=== PATIENT | female | born 1980 | race Caucasian/White ===

== ENCOUNTER 2019-07-20 23:55 | Inpatient (IN) | payer BC, OTHER ==
[~2019-07-20] VITALS: Ht 160 cm; Wt 59.9 kg
[2019-07-20 23:55] VITALS: BP_SYST 121
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
[2019-07-21] VITALS (25 sets, daily range): BP systolic 105–138
--- NOTE | 2019-07-21 | NUR ---
Dr. Ayala at bedside.
[2019-07-21] MEDS ORDERED: NACL 0.9% 1,000 ML IV ONE ×2 (00:15→02:30)
--- NOTE | 2019-07-21 00:20 | NUR ---
Dr. Ayala on phone with Poison control.
--- NOTE | 2019-07-21 00:30 | NUR ---
IVF therapy well tolerated, Lab work sent in
--- NOTE | 2019-07-21 00:30 | NUR ---
Dr. Ayala aware of 1st 12 lead EKG reading
--- NOTE | 2019-07-21 00:30 | NUR ---
Roberto SNEED with family to ED with history of depression and hypertension who was brought in by to the ED for an evaluation of an overdose and suicidal ideation today. The reports he was with the patient today when they went outside to watch a band. He states patient had alcohol today which he believes caused bad thoughts about her father and led to the suicide attempt. and her got into an argument and states he left the room. When he came back, patient had lots of empty bottles and pills on the floor. Per , [facility] and had massive pain afterwards. The headache today is rated 8/10 intensity. Patient has multiple cuts to her bilateral lower extremities. States pain to her bilateral lower extremities. States allergies to Morphine as she gets a rash. VSS remains in guarded condition while Dr. Ayala getting on phone with poison control Resting on ChipX raRocketOn up
[2019-07-21] MEDS ORDERED: ACTIVATED CHARCOAL 50 GM ORAL.SUSP PO ONE (00:45)
[2019-07-21 00:50] LABS: BASOPHILS % (AUTO) 0.5 % (0.0-2.0); EOSINOPHILS # (AUTO) 0.2 K/uL (0.0-0.4); EOSINOPHILS % (AUTO) 3.1 % (0.0-4.0); HEMATOCRIT 41.9 % (36-48); LYMPHOCYTES # (AUTO) 3.2 K/uL (1.0-5.5); LYMPHOCYTES % (AUTO) 42.9 % (20.5-51.5); MEAN CORPUSCULAR HEMOGLOBIN 30 pg (27-31); MEAN CORPUSCULAR HGB CONC 34 % (32-36); MEAN CORPUSCULAR VOLUME 91 fL (79.0-98.0); MONOCYTES # (AUTO) 0.6 K/uL (0.0-1.0); MONOCYTES % (AUTO) 8.1 % (1.7-9.3); NEUTROPHILS # (AUTO) 3.4 K/uL (1.8-7.7); NEUTROPHILS % (AUTO) 45.4 % (40.0-70.0); PLATELET COUNT (AUTO) 468 K/uL (130-430); RED BLOOD CELL COUNT(AUTO) 4.62 MIL/uL (4.2-6.2); RED CELL DISTRIBUTION WIDTH 13.4 % (9.0-15.0); WHITE BLOOD COUNT (AUTO) 7.5 K/uL (4.8-10.8)
[2019-07-21 00:53] LABS: CALCIUM 9.6 mg/dL (8.4-11.0); CREATININE 0.83 mg/dL (0.55-1.30); POTASSIUM 3.4 mmol/L (3.5-5.1)
[2019-07-21] MEDS ORDERED: GOLYTELY / COLYTE SOLUTION 4 LITERS PO ONE (01:00)
[2019-07-21 01:03] LABS: ALBUMIN 4.2 g/dL (3.4-4.8); TOTAL BILIRUBIN 0.2 mg/dL (0.0-1.0)
--- NOTE | 2019-07-21 01:05 | NUR ---
Activated Charcol pt kept down, well tolerated
--- NOTE | 2019-07-21 01:29 | NUR ---
Episodic Hysteria with maternal figure at bedside. VSS no s/s of acute distress. Father remains at bedside therapeutically
--- NOTE | 2019-07-21 01:42 | NUR ---
VSS, 128/64, 96% O2 sat on RA, 68, 16, 98.2. Pt asleep. Father figure remains at bedside to the pt's emotional benefit
--- NOTE | 2019-07-21 02:42 | NUR ---
Dr. Ayala aware pt is not arousable and snoring while completely asleep. VSS No s/s of acute distress
--- NOTE | 2019-07-21 02:55 | NUR ---
Dr. Ayala also aware BP trending down overall, currently with SBP at 98
[2019-07-21] MEDS ORDERED: NALOXONE HCL 0.4 MG/ML AMP (NARCAN) IVP ONE (03:15)
[2019-07-21] MEDS ORDERED: MAGNESIUM SULFATE/D5W 100 ML IV ONE (03:15)
--- NOTE | 2019-07-21 03:16 | NUR ---
B/P 72/40, HR 86, SPO2 100%. Pt continues to be unresponsive.
[2019-07-21] MEDS ORDERED: ETOMIDATE 20 MG/ 10 ML VIAL (AMIDATE) IVP ONE ×2 (03:18→09:19)
--- NOTE | 2019-07-21 03:18 | NUR ---
Time out performed for intubation. Dr. Ayala, myself, RT at bedside. Pt remains unresponsive, mild gag reflex noted. Pt given Etomidate 12 mg IVP to patent and secure PIV right wrist.
[2019-07-21] MEDS ORDERED: SUCCINYLCHOLINE CHLORIDE 20 MG/ML(QUELICIN) IVP ONE ×2 (03:19→09:19)
--- NOTE | 2019-07-21 03:19 | NUR ---
Succinylcholine [address] Ayala attempting to intubate.
--- NOTE | 2019-07-21 03:24 | NUR ---
Unsuccessful intubation attempt with black stomach contents noted to end of ETT. Pt suctioned.
--- NOTE | 2019-07-21 03:28 | NUR ---
Pt HR 56, SPO2 42%. CPR in progress. Pt connected to crashcart monitor. Dr. Ayala at head of bed performing intubation.
--- NOTE | 2019-07-21 03:29 | NUR ---
Successful intubation per Dr. Ayala with 7 mm ETT, secured at 23 cm to lip. Vent settings: Assist mode, Vt 500, R 16, FiO2 100%.
[2019-07-21] MEDS ORDERED: EPINEPHrine JECT 0.1 MG/ML SYR IVP ONE (03:30)
--- NOTE | 2019-07-21 03:30 | NUR ---
Epinephrine 1 mg given.
[2019-07-21] MEDS ORDERED: NOREPINEPHRINE 4 MG/4 ML VIAL IV ONE (03:50)
[2019-07-21] MEDS ORDERED: NOREPINEPHRINE BITARTRATE 4 MG in NS 246 ML IV ONE (04:00)
--- NOTE | 2019-07-21 04:22 | NUR ---
# 16 FR Paiz catheter with use of sterile technique. Immediate return of 100 cc yellow urine noted. Bedside drainage bag placed below level of bladder. Urine sample collected and sent to lab. Pt tolerated procedure well.
[2019-07-21 04:38] LABS: BARBITURATE, URINE NEGATIVE (NEG <=200); BENZODIAZEPINE, URINE NEGATIVE (NEG <=150); CANNABINOID, URINE NEGATIVE (NEG <=50); COCAINE, URINE NEGATIVE (NEG <=150); METHAMPHETAMINES SCREEN,URINE NEGATIVE (NEG <=500); OPIATE, URINE NEGATIVE (NEG <=100); PHENCYCLIDINE SCREEN,URINE NEGATIVE (NEG <=25); UR TRICYCLIC ANTIDEPRESSANTS POSITIVE (NEG <=300); URINE AMPHETAMINE NEGATIVE (NEG <=500); URINE METHADONE NEGATIVE (NEG <=200); URINE OXYCODONE SCREEN NEGATIVE (NEG <=100); URINE PROPOXYPHENE SCREEN NEGATIVE (NEG <=300)
--- NOTE | 2019-07-21 04:46 | NUR ---
RTs bedside for ABG draw, remains in ICU status while Levophed IV gtt titrated up to 6 mcg
[2019-07-21] MEDS ORDERED: SODIUM BICARBONATE 4% (NEUT) 5 ML VIAL INJ ONE (05:00)
--- NOTE | 2019-07-21 05:00 | NUR ---
Dr. Ayala aware of latest ABG result, prep to start Bicarb IV gtt
--- NOTE | 2019-07-21 05:38 | NUR ---
Dr. Ayala on phone with poison control. Per instructions of poison control, administer glucagon 5 mg IV. If B/P improves, decrease Levophed and begin glucagon drip at 5 mg/hr. Adminisiter 1 liter of Go-lytely over an hour and repeat hourly until clear stools.
[2019-07-21] MEDS ORDERED: SODIUM BICARBONATE 4% (NEUT) 5 ML VIAL ONE (05:42)
[2019-07-21] MEDS ORDERED: GLUCAGON,HUMAN RECOMBINANT 1 MG VIAL IVP ONE (05:45)
--- NOTE | 2019-07-21 06:05 | NUR ---
Dr. Terrell at bedside examining pt.
--- NOTE | 2019-07-21 06:15 | NUR ---
Pt to CT with child monitor accompanied by PROFESSOR OF ANTHROPOLOGY, hospital monitor, and RT.
--- NOTE | 2019-07-21 06:24 | NUR ---
Pt vomits black colored stomach contents when placed onto CT gurney. Pt suctioned per RT. Dr. Ayala notified.
--- NOTE | 2019-07-21 06:25 | NUR ---
Pt given Zofran 4 mg IVP. No further vomiting noted at this time. Pt to go to ICU after CT.
[2019-07-21] MEDS ORDERED: NACL 0.9% 1,000 ML IV SCH (06:26)
[2019-07-21] MEDS ORDERED: ONDANSETRON HCL 4 MG/2 ML VIAL IVP ONE (06:30)
[2019-07-21] MEDS ORDERED: ALBUTEROL SULFATE 0.083% 2.5 MG/3 ML VIAL.NEB INH PRN (06:30)
--- NOTE | 2019-07-21 06:30 | NUR ---
Patient will be admitted to care of Dr. Horn. Admitted to ICU unit. Will go to room 1. Belongings list completed. Complete and up to date summary report printed. SBAR report to be given at bedside with opportunity for questions.
[2019-07-21] MEDS ORDERED: ONDANSETRON HCL 4 MG/2 ML VIAL ONE (06:35)
--- NOTE | 2019-07-21 07:21 | NUR ---
RECEIVED NURSING REPORT FROM BETH DEL VALLE R.N
--- NOTE | 2019-07-21 08:33 | NUR ---
Paged Dr. Lars elliott, spoke to Rocio with the exchange.
[2019-07-21 08:43] LABS: PROTHROMBIN TIME 10.4 SECS (9.5-12.5)
--- NOTE | 2019-07-21 08:48 | NUR ---
Poison Control Spoke to Ligia - informed of pts current status. New orders received for laboratory which were input.
--- NOTE | 2019-07-21 08:52 | NUR ---
Consult for Dr. Lerma, spoke to Alice with the exchange awaiting call back.
[2019-07-21 09:05] LABS: BASOPHILS % (AUTO) 0.3 % (0.0-2.0); EOSINOPHILS % (AUTO) 0.1 % (0.0-4.0); HEMATOCRIT 33.2 % (36-48); HEMOGLOBIN 10.9 g/dL (12.0-16.0); LYMPHOCYTES % (AUTO) 23.2 % (20.5-51.5); MEAN CORPUSCULAR HEMOGLOBIN 30 pg (27-31); MEAN CORPUSCULAR HGB CONC 33 % (32-36); MEAN CORPUSCULAR VOLUME 92 fL (79.0-98.0); MONOCYTES # (AUTO) 0.7 K/uL (0.0-1.0); MONOCYTES % (AUTO) 7.9 % (1.7-9.3); NEUTROPHILS # (AUTO) 5.8 K/uL (1.8-7.7); NEUTROPHILS % (AUTO) 68.5 % (40.0-70.0); PLATELET COUNT (AUTO) 349 K/uL (130-430); RED CELL DISTRIBUTION WIDTH 13.3 % (9.0-15.0); WHITE BLOOD COUNT (AUTO) 8.4 K/uL (4.8-10.8)
[2019-07-21 09:29] LABS: ALANINE AMINOTRANSFERASE 132 U/L (12-78); ANION GAP 14 (5-15); ASPARTATE AMINOTRANSFERASE 131 U/L (10-37); CHLORIDE 111 mmol/L (98-107); CREATININE 0.94 mg/dL (0.55-1.30); GLUCOSE 88 mg/dL (70-99); POTASSIUM 3.2 mmol/L (3.5-5.1); SODIUM SERUM 148 mmol/L (136-145); TOTAL BILIRUBIN 0.2 mg/dL (0.0-1.0); UREA NITROGEN, BLOOD 7 mg/dL (8-21)
[2019-07-21 09:37] LABS: GFR AFRICAN AMERICAN 86 mL/min (>90)
[2019-07-21 09:40] LABS: CALCIUM 6.8 mg/dL (8.4-11.0)
[2019-07-21] MEDS: PIPERACILLIN/TAZO 3.375/DEX-IS 50 ML IV SCH ×3 (09:42→17:04)
--- NOTE | 2019-07-21 10:37 | NUR ---
SEE PATIENT, AND UPDATED PATIENT,S CONDITION WITH FAMILIES AT BEDSIDE
--- NOTE | 2019-07-21 11:11 | NUR ---
MD Dr. Whitfield informed of recommendation from [place] Pharmacist with Poison Control, with starting NAC (Acetadote) protocol, Dr. Whitfield is agreeable to start protocol. [place] Pharmacist Sudha informed of recommendation / order.
[2019-07-21] MEDS ORDERED: ACETYLCYSTEINE IV ONE ×3 (11:15→17:00)
[2019-07-21] MEDS ORDERED: D5W IV ONE ×3 (11:15→17:00)
--- NOTE | 2019-07-21 11:36 | NUR ---
1100 TITRATED FIO2 DOWN TO 40%. SPO2 100%. PT TOLERATING WELL.
[2019-07-21] MEDS: 0.45% NACL 1,000 ML IV SCH ×2 (12:22→21:50)
--- NOTE | 2019-07-21 12:25 | NUR ---
FINISHED 2 D ECHO CARDIOGRAM AT BEDSIDE, E.F 74 %
--- NOTE | 2019-07-21 12:40 | NUR ---
NEURO DR. JOHNSON SEE PATIENT AND UPDATED PATIENT,S CONDITION WITH PATIENT,S AND MON AT BEDSIDE, ORDERED (PATIENT IS MILD AWAKE,) NOT NEED [place] NOW
[2019-07-21] MEDS ORDERED: POTASSIUM CHLORIDE 40 MEQ in NS 250 ML IV ONE (13:00)
--- NOTE | 2019-07-21 13:30 | NUR ---
DR. ESPINOZA ORDERED CHANGE VENTILATOR SETTING : AC 14, TV 450, FIO2 30%, PEEP 5
--- NOTE | 2019-07-21 14:12 | NUR ---
Poison Control Spoke to pharmacist Ligia with poison control gave up date of Valporic Acid Level < 3. Ligia recommended a third lactic level.
--- NOTE | 2019-07-21 14:23 | NUR ---
1330 CHANGED VENT SETTINGS TO AC14, VT450, PEEP +5. PT TOLERATING WELL.
--- NOTE | 2019-07-21 19:20 | NUR ---
PAGED DR. DESTINEE Hernandez, REGARDING OF ORDER, WAITING FOR DOCTOR CALL BACK
--- NOTE | 2019-07-21 19:25 | NUR ---
OPENING NOTE SBAR REPORT RECEIVED FROM ARVIND VALLADARES. CARE ASSUMED. PT LAYING IN BED INTUBATED. ETT SIZE 7 LIP LINE 23. VENT SETTINGS AC 14, TIDAL VOLUME 450, FiO2 30%, PEEP 5. O2 SATURATION 100%. PT ANO X2. PT SINUS RHYTHM ON MONITOR. 18 G IV TO LEFT AC RUNNING NS @ 125 ML/HR AND 18 G TO BILATERAL WRISTS SALINE LOCKED. BILATERAL WRIST RESTRAINTS IN PLACE. NO EDEMA NOTED. PT HAS OG TUBE WITH LOW INTERMITTENT SUCTION. PT HAS GUERRERO CATHETER IN PLACE DRAINING TO GRAVITY. URINE CLEAR AND YELLOW. PT HAS MULTIPLE SUPERFICIAL CUTS TO BILATERAL CALVES, BILATERAL THIGHS, LOWER ABDOMEN, AND CHEST. AND PARENTS AT BEDSIDE. BED LOCKED IN LOWEST POSITION. CALL LIGHT WITHIN REACH. SAFETY PRECAUTIONS IN PLACE. WILL CONTINUE TO MONITOR.
--- NOTE | 2019-07-21 19:35 | NUR ---
DR. FELIPE CALLED BACK, ORDERED GIVE PROTONIX 40 MG IVP FIRST DOSE TONIGHT AND DAILY
--- NOTE | 2019-07-21 19:40 | NUR ---
GIVE COMPLETE NURSING REPORT TO GASOLINE PUMP MECHANIC KATHY Cooper
[2019-07-21] MEDS ORDERED: PANTOPRAZOLE SODIUM 40 MG/VIAL (PROTONIX) IVP ONE (21:00)
[2019-07-22] VITALS (28 sets, daily range): BP systolic 91–121
[2019-07-22] MEDS: PIPERACILLIN/TAZO 3.375/DEX-IS 50 ML IV SCH ×4 (00:23→16:57)
--- NOTE | 2019-07-22 06:45 | NUR ---
Nutrition Update Aamir Scale 14 noted. Pt admitted for Suicide attempt Diet: NPO BMI: 18.3 kg/m2 RD to follow per nutrition care standards.
[2019-07-22] MEDS: 0.45% NACL 1,000 ML IV SCH ×3 (06:54→21:56)
[2019-07-22 07:10] LABS: BASOPHILS % (AUTO) 0.2 % (0.0-2.0); EOSINOPHILS % (AUTO) 0.4 % (0.0-4.0); HEMATOCRIT 30.9 % (36-48); HEMOGLOBIN 10.5 g/dL (12.0-16.0); LYMPHOCYTES # (AUTO) 1.6 K/uL (1.0-5.5); LYMPHOCYTES % (AUTO) 14.2 % (20.5-51.5); MEAN CORPUSCULAR HEMOGLOBIN 31 pg (27-31); MEAN CORPUSCULAR HGB CONC 34 % (32-36); MEAN CORPUSCULAR VOLUME 90 fL (79.0-98.0); MONOCYTES # (AUTO) 0.8 K/uL (0.0-1.0); MONOCYTES % (AUTO) 6.8 % (1.7-9.3); NEUTROPHILS # (AUTO) 9.1 K/uL (1.8-7.7); NEUTROPHILS % (AUTO) 78.4 % (40.0-70.0); PLATELET COUNT (AUTO) 267 K/uL (130-430); RED BLOOD CELL COUNT(AUTO) 3.42 MIL/uL (4.2-6.2); RED CELL DISTRIBUTION WIDTH 13.5 % (9.0-15.0); WHITE BLOOD COUNT (AUTO) 11.6 K/uL (4.8-10.8)
--- NOTE | 2019-07-22 07:17 | NUR ---
RECEIVED NURSING REPORT FROM CONCERT MANAGER KATHY Cooper
[2019-07-22 07:21] LABS: INR 1.1 (0.8-1.2); PROTHROMBIN TIME 11.2 SECS (9.5-12.5)
[2019-07-22 07:28] LABS: ALBUMIN 2.5 g/dL (3.4-4.8); BILIRUBIN,DIRECT 0.2 mg/dL (0.0-0.3); CALCIUM 7.2 mg/dL (8.4-11.0); CREATININE 0.86 mg/dL (0.55-1.30); TOTAL BILIRUBIN 0.4 mg/dL (0.0-1.0)
--- NOTE | 2019-07-22 07:30 | NUR ---
CLOSING NOTE NO SIGNS AND SYMPTOMS OF DISTRESS. SBAR REPORT GIVEN TO ARVIND VALLADARES. CARE ENDORSED.
[2019-07-22] MEDS: PANTOPRAZOLE SODIUM 40 MG/VIAL (PROTONIX) IVP SCH (09:13)
--- NOTE | 2019-07-22 09:15 | NUR ---
AT 0900 DR. ESPINOZA SEE PATIENT, ORDERED CHANGE VENTILATOR SETTING TO CPAP, AND FOLLOW UP ABG AT 1015 A.M, ORDERED FOLLOW UP LAB IN TOMORROW A.M
[2019-07-22] MEDS ORDERED: POTASSIUM CHLORIDE 40 MEQ in NS 250 ML IV ONE (09:45)
--- NOTE | 2019-07-22 10:08 | NUR ---
PATIENT IS ALERT, ORIENTED X 3, BLOOD SUGAR IS NORMAL ( NO HISTORY OF DIABETIC ) DR. ESPINOZA ORDERED DISCONTINUE ACCU CHECK AND BILATERAL WRISTS RESTRAINT
--- NOTE | 2019-07-22 10:31 | NUR ---
SEE PATIENT, AND UPDATED PATIENT,S CONDITION WITH PATIENT AND HER AT BEDSIDE
--- NOTE | 2019-07-22 11:43 | NUR ---
RT NOTES- EXTUBATION PT EXTUBATED WITH RN ARVIND ASSIST AT THIS TIME, PLACED ON 2L N/C PER DR. ESPINOZA. TOLERATING WELL. WILL CONTINUE MONITORING.
--- NOTE | 2019-07-22 11:49 | NUR ---
CM Note: Updated clinical to [facility]/[place] ipa and faxed md progress notes to fax# [phone], tel # [phone].
--- NOTE | 2019-07-22 15:10 | NUR ---
[facility] ( [phone] )STAFF JIMMY CALLED FOR UPDATED PATIENT,S CONDITION
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
--- NOTE | 2019-07-22 19:34 | NUR ---
Opening Note Pt in bed AAO. SR on the monitor, 2L NC noted. Pt tolerating well. Pt breath sounds clear. No s/s of distress noted. Pt has RT wrist IV in place running IVF. No s/s of infiltration noted. C/D/I. OGT in place clamped. Auscultated and flushed to confirm placement. Pt has hines catheter in place draining urine to gravity. VSS. Afebrile. Will continue to monitor.
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
[2019-07-22] MEDS: LORazepam 2 MG/ML VIAL IVP PRN (21:55)
[2019-07-23] VITALS (21 sets, daily range): BP systolic 98–121
[2019-07-23] MEDS: PIPERACILLIN/TAZO 3.375/DEX-IS 50 ML IV SCH ×3 (00:15→12:20)
--- NOTE | 2019-07-23 00:32 | NUR ---
RN Round Pt in bed asleep. No s/s of distress noted. VSS. at bedside w/ Pt. Will continue to monitor.
--- NOTE | 2019-07-23 04:50 | NUR ---
RN Rounds Pt in bed asleep. No s/s of distress noted. Pt VSS. Will continue to monitor.
[2019-07-23 06:12] LABS: BASOPHILS # (AUTO) 0.1 K/uL (0.0-0.2); BASOPHILS % (AUTO) 0.5 % (0.0-2.0); EOSINOPHILS # (AUTO) 0.2 K/uL (0.0-0.4); HEMATOCRIT 27.2 % (36-48); HEMOGLOBIN 9.2 g/dL (12.0-16.0); LYMPHOCYTES # (AUTO) 1.7 K/uL (1.0-5.5); LYMPHOCYTES % (AUTO) 15.7 % (20.5-51.5); MEAN CORPUSCULAR HEMOGLOBIN 31 pg (27-31); MEAN CORPUSCULAR HGB CONC 34 % (32-36); MEAN CORPUSCULAR VOLUME 91 fL (79.0-98.0); MONOCYTES # (AUTO) 0.8 K/uL (0.0-1.0); MONOCYTES % (AUTO) 7.7 % (1.7-9.3); NEUTROPHILS # (AUTO) 7.9 K/uL (1.8-7.7); NEUTROPHILS % (AUTO) 74.1 % (40.0-70.0); PLATELET COUNT (AUTO) 243 K/uL (130-430); RED BLOOD CELL COUNT(AUTO) 2.99 MIL/uL (4.2-6.2); RED CELL DISTRIBUTION WIDTH 13.6 % (9.0-15.0); WHITE BLOOD COUNT (AUTO) 10.7 K/uL (4.8-10.8)
[2019-07-23 06:42] LABS: ALBUMIN 2.3 g/dL (3.4-4.8); CALCIUM 7.8 mg/dL (8.4-11.0); CREATININE 0.78 mg/dL (0.55-1.30); POTASSIUM 3.1 mmol/L (3.5-5.1); TOTAL BILIRUBIN 0.5 mg/dL (0.0-1.0)
--- NOTE | 2019-07-23 06:55 | NUR ---
IV Pt kIv infiltrated and D/C'ed. 22g IV started on the Lt wrist. Good blood return noted and able to flush. Will continue to monitor.
--- NOTE | 2019-07-23 07:13 | NUR ---
RECEIVED NURSING REPORT FROM BETH MONSIVAIS
--- NOTE | 2019-07-23 07:15 | NUR ---
Endorsement Report given to RN at bedside via SBAR approach. Patient safety rounds completed. VSS. No distress noted.
[2019-07-23] MEDS: PANTOPRAZOLE SODIUM 40 MG/VIAL (PROTONIX) IVP SCH (07:59)
--- NOTE | 2019-07-23 08:25 | NUR ---
PAGED DR. ESPINOZA FOR ABNORMAL ABG RESULT, WAITING FOR DOCTOR CALL BACK
--- NOTE | 2019-07-23 10:00 | NUR ---
SEE PATIENT, ORDERED REMOVE OG-TUBE AND START FULL LIQUID DIET
[2019-07-23] MEDS ORDERED: POTASSIUM CHLORIDE 20 MEQ TAB.PRT.SR PO ONE (10:15)
--- NOTE | 2019-07-23 10:29 | NUR ---
ROLL COATING MACHINE OPERATOR met with patient and family, Marito at bedside. Pt is needing a letter for her employer that she is in confined in the hospital; ROLL COATING MACHINE OPERATOR provided. Pt is also seeing Dr. Mikey Cervantes at [facility] @ [phone] for her psychiatric needs.
--- NOTE | 2019-07-23 11:00 | NUR ---
PATIENT IS ALERT, ORIENTED X4, OK TO SWALLOW ICE CHIP, SMALL AMOUNT WATER, CHIEF COMPLAIN FEEL MILD SORE THROAT, NO S/S OF ACUTE RESPIRATORY DISTRESS NOTED AT THIS TIME, THE PARENTS STAY WITH PATIENT, CALL LIGHT IN REACH,RAILS UP, KEEP CLEAN, DRY, SAFETY, COMFORTABLE ALL TIMES
[2019-07-23] MEDS: 0.45% NACL 1,000 ML IV SCH ×2 (12:20→12:25)
--- NOTE | 2019-07-23 12:56 | NUR ---
CONSULT PSYCH. CONSULTING MD: DR. LAWTON SPOKE TO: THIAGO DIALED: [phone] ORDERED BY: DR. ARIZMENDI
--- NOTE | 2019-07-23 13:10 | NUR ---
Spoke with Keerthi with [facility] and did UR with her. Questions answered. Informed her pt is extubated and psych consult pending.
--- NOTE | 2019-07-23 13:37 | NUR ---
Dietitian Recommendations * Recommend full liquid, kosher diet * Consider kosher dietary preference when diet advances [place], RD Please refer to Nutrition Assessment for details. Addendum: 07/23/19 at [address] Amended: Links added.
--- NOTE | 2019-07-23 15:58 | NUR ---
Observed pt sitting up in bed interacting with family who are at the bedside. SR on monitor. Call de luna in reach. Waiting for Dr. Hernandez to eval pt.
--- NOTE | 2019-07-23 16:15 | NUR ---
Patient in bed with and brother at bedside. Observed patient having conversations with both.
--- NOTE | 2019-07-23 16:30 | NUR ---
Patient laying in bed with and brother at bedside. Patient is observed interacting with both. No acute distress noted.
--- NOTE | 2019-07-23 16:45 | NUR ---
Patient observed with brother and at bedside. Patient was seen coughing into a towel. Patient not observed presenting acute distress.
--- NOTE | 2019-07-23 17:00 | NUR ---
Patient observed with family at bedside interacting. No acute distress noted.
--- NOTE | 2019-07-23 17:15 | NUR ---
Patient observed with family at bedside interacting. No acute distress noted.
--- NOTE | 2019-07-23 17:26 | NUR ---
GIVE COMPLETE NURSING REPORT TO ANDREA Cooper
--- NOTE | 2019-07-23 17:45 | NUR ---
Patient observed with family at bedside interacting. No acute distress noted.
--- NOTE | 2019-07-23 18:00 | NUR ---
Patient observed with family at bedside interacting. No acute distress noted.
--- NOTE | 2019-07-23 18:15 | NUR ---
Patient observed with family at bedside interacting. No acute distress noted.
--- NOTE | 2019-07-23 18:30 | NUR ---
Patient observed with family at bedside interacting. No acute distress noted.
--- NOTE | 2019-07-23 18:45 | NUR ---
Patient observed with family at bedside interacting. No acute distress noted.
--- NOTE | 2019-07-23 19:00 | NUR ---
PT TRANSFERRED Report given to Ally at Tele Room 131A. All belongings sent with patient. Patient left floor via bed escorted by RN in no distress.
--- NOTE | 2019-07-23 19:40 | NUR ---
Opening notes Pt received from ICU nurse Boubacar. Pt AAOx4, VSS, afebrile. O2 sat 100% on 2L via NC. IVF infusing at ordered rate L FA 22G clear and patent. Paiz catheter draining to gravity with clear, yellow urine. Sitter at bedside. at bedside. Safety maintained.
[2019-07-23] MEDS: LORazepam 2 MG/ML VIAL IVP PRN (22:33)
--- NOTE | 2019-07-23 22:33 | NUR ---
Rounds Pt states she feels anxious, no s/s respiratory distress. Ativan 1mg slow IVP given as needed. Encouraged pt to take slow deep breaths. Sitter remains at bedside. at bedside. To monitor.
[2019-07-24] MEDS: PIPERACILLIN/TAZO 3.375/DEX-IS 50 ML IV SCH ×5 (00:09→18:02)
--- NOTE | 2019-07-24 00:10 | NUR ---
Rounds Pt awake, VSS, no s/s distress noted. IVF/antibiotic infusing at ordered rate L. hand no s/s infiltration. Sitter at bedside. Safety maintained. To monitor.
--- NOTE | 2019-07-24 00:15 | NUR ---
Pt denies any suicidal ideations at this time.
[2019-07-24] MEDS ORDERED: AMIT10TA6 PO (00:43)
[2019-07-24] MEDS ORDERED: METO50TA16 PO (00:43)
[2019-07-24] MEDS: 0.45% NACL 1,000 ML IV SCH (00:57)
--- NOTE | 2019-07-24 04:50 | NUR ---
Rounds Pt asleep at this time, respirations even and unlabored. at bedside. Sitter remains at bedside. To monitor.
--- NOTE | 2019-07-24 05:48 | NUR ---
Dr. Hernandez seen pt.
[2019-07-24 06:13] LABS: BASOPHILS % (AUTO) 0.4 % (0.0-2.0); EOSINOPHILS # (AUTO) 0.4 K/uL (0.0-0.4); EOSINOPHILS % (AUTO) 4.9 % (0.0-4.0); HEMATOCRIT 27.1 % (36-48); HEMOGLOBIN 9.3 g/dL (12.0-16.0); LYMPHOCYTES # (AUTO) 1.9 K/uL (1.0-5.5); LYMPHOCYTES % (AUTO) 26.2 % (20.5-51.5); MEAN CORPUSCULAR HEMOGLOBIN 31 pg (27-31); MEAN CORPUSCULAR HGB CONC 34 % (32-36); MEAN CORPUSCULAR VOLUME 91 fL (79.0-98.0); MONOCYTES # (AUTO) 0.8 K/uL (0.0-1.0); MONOCYTES % (AUTO) 10.8 % (1.7-9.3); NEUTROPHILS # (AUTO) 4.3 K/uL (1.8-7.7); NEUTROPHILS % (AUTO) 57.7 % (40.0-70.0); PLATELET COUNT (AUTO) 248 K/uL (130-430); RED BLOOD CELL COUNT(AUTO) 2.99 MIL/uL (4.2-6.2); RED CELL DISTRIBUTION WIDTH 13.3 % (9.0-15.0); WHITE BLOOD COUNT (AUTO) 7.4 K/uL (4.8-10.8)
--- NOTE | 2019-07-24 06:42 | NUR ---
Closing notes Pt alert, awake, no s/s distress noted. IVF/antibiotic infusing at ordered rate L. wrist 22G no s/s infiltration. Paiz catheter draining to gravity with clear, yellow urine. Pt denies suicidal ideations. at the bedside. Per Dr. David abarca to NI qureshi. Safety maintained. Will carry out order. To endorse to AM nurse.
[2019-07-24 07:02] LABS: ALBUMIN 2.4 g/dL (3.4-4.8); CREATININE 0.76 mg/dL (0.55-1.30); POTASSIUM 3.5 mmol/L (3.5-5.1); TOTAL BILIRUBIN 0.8 mg/dL (0.0-1.0)
--- NOTE | 2019-07-24 07:40 | NUR ---
Opening note patient resting in bed, a/ox4, [facility], patient denies pain, IV line is patent and infusing well, educated the patient and her yeast fermentation attendant light system and plan of care, they verbalized understanding, bed in lowest position, two side rails up, fall and aspiration precautions in place. Addendum: 07/24/19 at 1009 by Tom Luke RN Comment on initial assessment - patient denies suicidal ideation or plan at this time.
[2019-07-24] MEDS: CITALOPRAM HYDROBROMIDE 20 MG TABLET PO SCH (08:44)
[2019-07-24] MEDS: PANTOPRAZOLE SODIUM 40 MG/VIAL (PROTONIX) IVP SCH (08:44)
--- NOTE | 2019-07-24 08:45 | NUR ---
Medication patient resting in bed, awake, denies pain, educated on medications uses and potential side effects, she verbalized understanding and tolerated well, IV line is patent and infusing well, no other needs at this time, continuing to monitor, bed in lowest position ,two side rails up, call light within reach, fall and aspiration precautions in place.
[2019-07-24] MEDS ORDERED: ESCITALOPRAM OXALATE 10 MG TABLET PO SCH (09:00)
[2019-07-24 09:32] VITALS: BP_SYST 112
--- NOTE | 2019-07-24 10:45 | NUR ---
RN rounds moved patient room, close to nursing station for close monitoring, educated the patient erosion control coordinator light system, she verbalized understanding, IV fluids discontinued, IV line is patent and infusing well, Paiz Catheter in place, orders received to d/c Paiz Catheter, will follow up, patient denies pain, continuing to monitor, bed in lowest position, two side rails up, call light placed within reach, fall and aspiration precautions in place.
--- NOTE | 2019-07-24 10:56 | NUR ---
Social Service: met with family just for a follow-up BRICK CLEANER entered the pts. room. She recognized BRICK CLEANER from Monday. Her Marito was also present. Pt. was sitting upright and looked well. She was able to converse, had been downgraded from the ICU, saw Dr. Rudd, psyc and was cleared, no longer 5150. Pt. stated she is going to have the catheter removed which made her excited. She is looking forward to trying to walk. Pt. stated she was concerned because she had been off her medication for essential tremors, 50mg. daily of metoprolo and medication for her migraines, 10mg, daily of Amitriptyline. She stated she is not suppose to stop cold turkey on these meds. The plan for her once D/C'd is to go to the [place] to check in and take a list of all the meds she has been on while at [facility]. Pt. also stated she is feeling some tingling in her right arm/hand. She stated she had a lot of tape on at one time. Additionally, in ICU when she woke up, she was pulling on all of her lines. Pt. stated when she woke up she thought she was dying so she began pulling on all her lines. She stated she understands why she had all the tape on , but now feels some numbness. BRICK CLEANER spoke with Dr. Horn who entered the room and shared the medication concerns the pt. had. asked BRICK CLEANER to give the names of the meds to Tom the Rn assigned to pt. for the day. and pt. also brought up concern re. pts. arm/hand to Dr. Horn. Pt. also requested the BRICK CLEANER call the [place] psychologist, Dr. Mikey FOLEY in [place] at [phone], to give her a update. BRICK CLEANER will try calling . BRICK CLEANER will remain available as needed. Addendum: 07/24/19 at 1113 by Temitope Jean BRICK CLEANER Gastroenterology Manager - follow up BRICK CLEANER spoke with Eva Santos. She was aware of the two medications for pts. migraines and essential tremors. She also mentioned there is a consult for pts. arm. BRICK CLEANER thanked her. DHAVAL called pts. psychologist at the [facility], but when she called was given a direct ph. number, . When BRICK CLEANER called, there was a voice message to leave a msg for an Rn. Also included in voice msg. was a phone number for the [facility] who are [facility]. BRICK CLEANER wrote the phone number down and gave a copy to pt. BRICK CLEANER Will remain available as needed.
--- NOTE | 2019-07-24 12:17 | NUR ---
RN rounds patient resting in bed, eating lunch, aspiration precautions in place, patient denies pain, educated on IV antibiotic hung and infusing well, IV line is patent and infusing well, her family is at bedside, once the patient has more privacy, will remove the Paiz Catheter, will follow up, no other needs at this time, bed in lowest position, two side rails up, call light within reach, fall precautions in place.
[2019-07-24 12:45] VITALS: BP_SYST 113
--- NOTE | 2019-07-24 13:50 | NUR ---
RN rounds/D/C Paiz/D/C Telemetry patient resting in bed, her is at bedside, patient denies pain, provided patient with privacy and D/C Paiz Catheter, patient tolerated well, assisted patient to restroom to void - she was able to void without difficulty -patient ambulated with assist, feeling dizzy afterwards, back to bed with oxygen via nasal cannula at 2L at this time, discontinued air sampling and monitoring at this time, patient has no other needs at this time, re-educated on safety precautions, she verbalized understanding, bed in lowest position, two side rails up, call light within reach, fall and aspiration precautions in place.
--- NOTE | 2019-07-24 15:20 | NUR ---
RN rounds patient resting in bed, eyes closed, breathing is even and unlabored, no signs of distress, continuing to monitor ,bed in lowest position, two side rails up, call light is within reach, bed close to nursing station, fall and aspiration precautions in place.
--- NOTE | 2019-07-24 16:15 | NUR ---
DC Planning: updated Nae/[place] MG: Psych issue is cleared by dr. Hernandez "The patient currently not suicidal or homicidal. The patient can be treated back with her psychiatrist and her psychologist. She and her agreed to that plan." The discharge is pending dr. Horn ' s order.
[2019-07-24 16:54] VITALS: BP_SYST 116
--- NOTE | 2019-07-24 18:05 | NUR ---
RN rounds patient resting in bed, eating dinner, aspiration precautions in place, patient denies pain, educated on IV antibiotic hung and infusing well, IV line is patent and infusing well, assisted patient to the restroom, then back into bed, patient on 2L via nasal cannula at this time, no other needs at this time, bed in lowest position, two side rails up, bed close to nursing station, call light within reach, fall precautions in place.
--- NOTE | 2019-07-24 18:52 | NUR ---
Closing note patient resting in bed, denies pain, IV line is patent and infusing well, all needs met, will endorse report to NOC shift nurse, bed in lowest position, bed close to nursing station, two side rails up, call light within reach, fall and aspiration precautions in place.
--- NOTE | 2019-07-24 19:35 | NUR ---
PATIENT RECEIVED WITH FAMILY AT BEDSIDE. WITH CALL LIGHT WITHIN REACH,
[2019-07-24 20:00] VITALS: BP_SYST 120
[2019-07-24] MEDS: LORazepam 2 MG/ML VIAL IVP PRN (22:38)
[2019-07-24 23:46] VITALS: BP_SYST 131
[2019-07-25] MEDS: PIPERACILLIN/TAZO 3.375/DEX-IS 50 ML IV SCH ×5 (00:27→21:20)
[2019-07-25 04:00] VITALS: BP_SYST 126
--- NOTE | 2019-07-25 05:40 | NUR ---
DR LAWTON IN AND SEEN PATIENT INFORMEDTHAT PATIENT WAS GIVEN LORAZEPAM IVP TO MAKE HER SLEEP AND CAN BENIFIT FOR MEDICATIONS JOCELIN SLEEP AND TALKED TO THE PATIENT FOR WHAT MEDICATION HE WILL ORDERS FOR SLEEP. NASAL CANNULA OFF AND SATURATION CHECKED 96 % ON ROOM AIR, ENCOURAGE TO COUGH AND DEEP BREATH .
--- NOTE | 2019-07-25 07:14 | NUR ---
NOTED NOSE BLEEDING BUT SCANT,WILL CONTINUE TO MONITOR.NASAL CANNULA OFF`FOR OBSERVATION IS HER SATURATION WILL BE NORMAL WITH NO OXYGEN INHALATION, LATEST CHECKED 96 % ON ROOM AIR. WITH AT BEDSIDE
[2019-07-25] MEDS: CITALOPRAM HYDROBROMIDE 20 MG TABLET PO SCH (07:50)
[2019-07-25] MEDS: PANTOPRAZOLE SODIUM 40 MG/VIAL (PROTONIX) IVP SCH (07:50)
[2019-07-25 09:11] VITALS: BP_SYST 120
[2019-07-25 10:46] VITALS: BP_SYST 120
--- NOTE | 2019-07-25 12:20 | NUR ---
Mobility Out of bed to sink with dizziness gait not steady safety/fall precaution initiated feel better back to bed ,no SOB ,to call for assist verbalized understanding.,
[2019-07-25 12:21] VITALS: BP_SYST 145
--- NOTE | 2019-07-25 15:00 | NUR ---
IV PLACEMENT: # G.20 gauge angiocath placed to RIGHT AC . Use of asceptic technique. Opsite placed over site. Blood return noted. Flushed with 10 cc of nor No evidence of infiltration noted. Patient tolerated WELL.
--- NOTE | 2019-07-25 15:26 | NUR ---
Met with Pt and at bed side, inquiry regarding bridging her medications [facility]. TEST FIXTURE DESIGNER advised that Pt. obtain a copy of her medical records and discharge instructions at discharge for continuity of care, as it does not appear that [facility] psychologist has responded to previous inquires. Pt[facility] after [facility] for follow up treatment. Pt. reported that she is not receiving 2 medications during her hospital stay that she is prescribed for migraine prevention and tremors. Amitriptyline and Metoprolol She reported numbness on her left finger tips and fine hand tremor noted. TEST FIXTURE DESIGNER notified JACQUELYN Painter regarding Pt. concerns for her migraine medication and fine tremor for follow up. Per Pt. request TEST FIXTURE DESIGNER contacted her Psychologist at the [facility] Dr. Jensen for update on hospital stay and follow appointments.Voicemail was left for her mental health provider. Pt. intends to follow up with Dr. Jensen and her medical provider after on a walk-in basis upon DC from [facility].
[2019-07-25] MEDS ORDERED: IOHEXOL 350 mgI/mL, 150 ML INFUS..BTL IV ONE (15:30)
[2019-07-25 16:37] VITALS: BP_SYST 133
--- NOTE | 2019-07-25 17:00 | NUR ---
Rounds Out of bed to bathroom with stand bye assist no dizziness unsteady gait, fall risk safety/fall precaution initiated.
[2019-07-25] MEDS ORDERED: METOPROLOL SUCCINATE 50 MG TAB.SR.24H (TOPROL XL) PO ONE (18:00)
[2019-07-25 20:00] VITALS: BP_SYST 114
--- NOTE | 2019-07-25 20:00 | NUR ---
RECEIVED PT IN BED V/S AND ASSESSMENT DONE SAME STABLE,PT C/O PAIN AT IV SITE SAME REMOVED ,RT AC IV H/L , AT BEDSIDE,NO SUICIDAL IDEATION NOTED AT THIS TIME.
[2019-07-25] MEDS ORDERED: AMITRIPTYLINE HCL 10 MG TABLET (ELAVIL) PO SCH (21:00)
[2019-07-25] MEDS ORDERED: traZODone HCL 50 MG TABLET (DESYREL) PO SCH (21:00)
[2019-07-25] MEDS: LORazepam 2 MG/ML VIAL IVP PRN (23:10)
--- NOTE | 2019-07-26 | NUR ---
PT C/O BEING ANXIOUS MEDICATION GIVEN FOR SAME WITH GOOD EFFECT.
[2019-07-26 00:36] VITALS: BP_SYST 119
[2019-07-26 04:00] VITALS: BP_SYST 120
[2019-07-26] MEDS: PIPERACILLIN/TAZO 3.375/DEX-IS 50 ML IV SCH ×2 (06:18→12:30)
[2019-07-26 08:10] VITALS: BP_SYST 98
--- NOTE | 2019-07-26 08:10 | NUR ---
INITIAL ROUNDS Received pt AAOx4, no s/s resp distress, no c/o pain or discomfort. pt stated she no longer has thoughts of harming herself. Plan of care for the day reviewed with pt-pt verbalized her understanding. Pain management, skin and safety discussed-teach back done. Call light within reach.
[2019-07-26] MEDS ORDERED: METOPROLOL SUCCINATE 50 MG TAB.SR.24H (TOPROL XL) PO SCH (09:00)
[2019-07-26] MEDS: CITALOPRAM HYDROBROMIDE 20 MG TABLET PO SCH (09:27)
[2019-07-26] MEDS: PANTOPRAZOLE SODIUM 40 MG/VIAL (PROTONIX) IVP SCH (09:27)
--- NOTE | 2019-07-26 11:46 | NUR ---
Operations Logistics Analyst:Meet with family to follow up FLOOR REPRESENTATIVE spoke with family. Pt. believes she will be d/c'd today. FLOOR REPRESENTATIVE told her there is a PT order. Pt. asked again if FLOOR REPRESENTATIVE can try to get a hold of her [facility] psychologist just to fill her in. FLOOR REPRESENTATIVE stated she would be happy to do so. Pt also requested a letter for her employer and if she could get all of her medical records. Her plan is to go over to her [facility] to [facility]. Mikey Cervantes at [facility] @ [phone] for her psychiatric needs and would like to bring over all of her records. FLOOR REPRESENTATIVE went back to her office and wrote an employer letter and also inquired on how pt. can get her records. FLOOR REPRESENTATIVE also called and spoke to Dr. Jensen who had already been filled in by pt. re. her circumstances and how she had to be admitted. told FLOOR REPRESENTATIVE she gave pt. instruction to come to her office the day she is discharged and the [facility] will take it from there on out. FLOOR REPRESENTATIVE asked if she had any questions. She did not. FLOOR REPRESENTATIVE walked over to pts. room to give her a letter and inform her on how to request all of her medical records. FLOOR REPRESENTATIVE will remain available as needed.
[2019-07-26 12:49] VITALS: BP_SYST 111
--- NOTE | 2019-07-26 13:45 | NUR ---
Pt seen by Dr. Lerma, Dr. Lerma stated okay to discharge pt home with p.o. antibiotics.
[2019-07-26 16:00] VITALS: BP_SYST 91
[2019-07-26 16:26] VITALS: BP_SYST 94
[2019-07-26] MEDS ORDERED: ALBU8.5H8 INH (16:43)
[2019-07-26] MEDS ORDERED: CEL20 PO (16:43)
[2019-07-26] MEDS ORDERED: AMOX-426 PO (16:43)
--- NOTE | 2019-07-26 17:45 | NUR ---
PATIENT DISCHARGED HOME Patient given medication reconciliation form and D/C instructions. Exit Care explained and provided. Patient verbalized her understanding. MD discussed with patient the results and treatment provided. Ambulatory with steady gait for discharge to home. Patient in stable condition, ID band removed. IV catheter removed, intact and dressing applied, no active bleeding. Rx of Amoxicillin and Albuterol inhaler sent to patient's pharmacy. Patient educated on pain management. All belongings sent with patient. Patient left floor via wheelchair to private vehicle in no distress.
== END 2019-07-26 17:45 | disposition home or self-care (01) | DRG 917 ==
LOC: SED 23:55 → SIC 07-21 05:50 → STU 07-23 19:05 → SMU 07-24 11:18
PROVIDERS: ADMIT Internal Medicine Hospice and Palliative Medicine; ATTEND Internal Medicine Hospice and Palliative Medicine
DX: T39.1X2A Poisoning by 4-Aminophenol derivatives, intentional self-harm, initial encounter (principal); J96.00 Acute respiratory failure, unspecified whether with hypoxia or hypercapnia; G92 Toxic encephalopathy; J69.0 Pneumonitis due to inhalation of food and vomit; R45.851 Suicidal ideations; F33.9 Major depressive disorder, recurrent, unspecified; E87.2 Acidosis; D64.9 Anemia, unspecified; F41.9 Anxiety disorder, unspecified; G43.909 Migraine, unspecified, not intractable, without status migrainosus; G47.00 Insomnia, unspecified; I10 Essential (primary) hypertension; Y90.6 Blood alcohol level of 120-199 mg/100 ml; I95.9 Hypotension, unspecified; E87.8 Other disorders of electrolyte and fluid balance, not elsewhere classified; T44.7X2A Poisoning by beta-adrenoreceptor antagonists, intentional self-harm, initial encounter; T43.222A Poisoning by selective serotonin reuptake inhibitors, intentional self-harm, initial encounter; T43.012A Poisoning by tricyclic antidepressants, intentional self-harm, initial encounter; Z88.5 Allergy status to narcotic agent; Z79.899 Other long term (current) drug therapy
CPT/HCPCS: 36415; 36600; 70450-TC; 71045; 71275; 80053; 80164-TC; 80307; 82140-TC; 82248-TC; 82803-TC; 82962; 83605; 84484; 84703; 85025; 85610-TC; 85730-TC; 87081; 92950; 93005; 93306; 94002; 94003; 94640; 94760; 96361; 96365; 96375; 99285; C9113; G0378; G0480; G0481; G0482; J0132; J0330; J2060; J2310; J2405; J2543; J3480; J3490; J7030; J7050; J7060; Q9967

== ENCOUNTER 2019-07-27 08:20 | Inpatient (IN) | payer BC ==
[~2019-07-27] VITALS: Ht 154.9 cm; Wt 63.0 kg
[2019-07-27 08:20] VITALS: BP_SYST 143
[~2019-07-27 08:20] MED LIST: ALBU8.5H8 INH; AMOX-426 PO; CEL20 PO; METO50TA16 PO
--- NOTE | 2019-07-27 08:20 | NUR ---
BROUGHT BACK TO BED #4 AND TRIAGED. REPORT GIVEN TO RONALD
--- NOTE | 2019-07-27 08:27 | NUR ---
Patient is awake, alert, and oriented x4. is at bedside. Patient was discharged yesterday at around 1740. She took amoxicillin last night and started having sharp right flank pain. Today she has sharp right flank pain that is described as a spasm and sharp.
[2019-07-27] MEDS ORDERED: NACL 0.9% 1,000 ML IV ONE ×2 (08:30→11:45)
[2019-07-27] MEDS ORDERED: KETOROLAC TROMETHAMINE 30 MG VIAL IVP ONE (08:30)
[2019-07-27] MEDS ORDERED: ONDANSETRON HCL 4 MG/2 ML VIAL IVP ONE (08:30)
--- NOTE | 2019-07-27 08:30 | NUR ---
ER Dr. Lockett at bedside examining patient.
--- NOTE | 2019-07-27 09:09 | NUR ---
Patient transported to radiology via gurney, accompanied by missile and missile checkout technician.
[2019-07-27 09:16] LABS: BASOPHILS % (AUTO) 0.4 % (0.0-2.0); EOSINOPHILS # (AUTO) 0.4 K/uL (0.0-0.4); EOSINOPHILS % (AUTO) 3.8 % (0.0-4.0); HEMATOCRIT 36.2 % (36-48); HEMOGLOBIN 12.3 g/dL (12.0-16.0); LYMPHOCYTES # (AUTO) 1.5 K/uL (1.0-5.5); LYMPHOCYTES % (AUTO) 14.3 % (20.5-51.5); MEAN CORPUSCULAR HEMOGLOBIN 31 pg (27-31); MEAN CORPUSCULAR HGB CONC 34 % (32-36); MEAN CORPUSCULAR VOLUME 91 fL (79.0-98.0); MONOCYTES # (AUTO) 0.5 K/uL (0.0-1.0); MONOCYTES % (AUTO) 5.2 % (1.7-9.3); NEUTROPHILS # (AUTO) 7.8 K/uL (1.8-7.7); NEUTROPHILS % (AUTO) 76.3 % (40.0-70.0); PLATELET COUNT (AUTO) 467 K/uL (130-430); RED BLOOD CELL COUNT(AUTO) 3.98 MIL/uL (4.2-6.2); RED CELL DISTRIBUTION WIDTH 13.6 % (9.0-15.0); WHITE BLOOD COUNT (AUTO) 10.2 K/uL (4.8-10.8)
[2019-07-27 09:18] LABS: BILIRUBIN,URINE NEGATIVE (NEGATIVE); BLOOD, URINE 3+ (NEGATIVE); CLARITY/URINE CLEAR (CLEAR); COLOR,URINE YELLOW (YELLOW); GLUCOSE,URINE NEGATIVE (NEGATIVE); KETONES,URINE NEGATIVE (NEGATIVE); LEUKOCYTE ESTERASE ,URINE TRACE (NEGATIVE); NITRITE, URINE NEGATIVE (NEGATIVE); PROTEIN URINE NEGATIVE (NEGATIVE); UROBILINOGEN,URINE 0.2 (0.2-1.0)
--- NOTE | 2019-07-27 09:20 | NUR ---
Returned from radiology, back to [facility].
[2019-07-27 09:21] LABS: HCG,QUAL RESULT NEGATIVE (NEGATIVE)
[2019-07-27 09:24] LABS: BACTERIA,URINE FEW /HPF (None Seen); WBC,URINE 0-3 /HPF (0-3)
[2019-07-27 09:27] LABS: BARBITURATE, URINE NEGATIVE (NEG <=200); METHAMPHETAMINES SCREEN,URINE NEGATIVE (NEG <=500); URINE AMPHETAMINE NEGATIVE (NEG <=500); URINE METHADONE NEGATIVE (NEG <=200)
[2019-07-27 09:28] LABS: BENZODIAZEPINE, URINE POSITIVE (NEG <=150); CANNABINOID, URINE NEGATIVE (NEG <=50); COCAINE, URINE NEGATIVE (NEG <=150); OPIATE, URINE NEGATIVE (NEG <=100); PHENCYCLIDINE SCREEN,URINE NEGATIVE (NEG <=25); UR TRICYCLIC ANTIDEPRESSANTS POSITIVE (NEG <=300); URINE OXYCODONE SCREEN NEGATIVE (NEG <=100); URINE PROPOXYPHENE SCREEN NEGATIVE (NEG <=300)
[2019-07-27 09:30] LABS: CALCIUM 9.1 mg/dL (8.4-11.0); CREATININE 0.89 mg/dL (0.55-1.30); POTASSIUM 3.5 mmol/L (3.5-5.1)
[2019-07-27 09:35] LABS: ALBUMIN 3.7 g/dL (3.4-4.8); TOTAL BILIRUBIN 0.7 mg/dL (0.0-1.0)
--- NOTE | 2019-07-27 10:06 | NUR ---
Medication reconciliation completed with information provided by patient. Any prior medication reconciliation on file was reviewed and corrected.
--- NOTE | 2019-07-27 11:41 | NUR ---
Patient will be admitted to care of Dr. Jacobson. Admitted to medsurg unit. Waiting for room assignment. Belongings list completed. Complete and up to date summary report printed. SBAR report to be given at bedside with opportunity for questions.
[2019-07-27] MEDS ORDERED: ACETAMINOPHEN 325 MG TABLET PO PRN (11:45)
[2019-07-27] MEDS ORDERED: ONDANSETRON HCL 4 MG/2 ML VIAL IVP PRN (11:45)
[2019-07-27] MEDS ORDERED: ALBUTEROL SULFATE 0.083% 2.5 MG/3 ML VIAL.NEB INH PRN (11:45)
--- NOTE | 2019-07-27 11:51 | NUR ---
Transfer to [facility]. Licensed nurse present. IV present no signs or symptoms of infiltration.
--- NOTE | 2019-07-27 11:58 | NUR ---
Admission: Received from ER with the diagnosis of Pneumonia, Renal Colic. Oriented x4, ambulatory with steady gait. Oriented to room, call light within reach.
[2019-07-27 12:00] VITALS: BP_SYST 105
[2019-07-27 12:09] VITALS: BP_SYST 108
[2019-07-27 12:41] VITALS: BP_SYST 119
[2019-07-27] MEDS ORDERED: TAMSULOSIN HCL 0.4 MG CAP PO ONE (12:45)
[2019-07-27] MEDS ORDERED: cefTRIAXone 1 GM IVPB PREMIX 50 ML IV ONE (13:00)
[2019-07-27] MEDS ORDERED: ALBUTEROL MDI INHALATION 8 GM INH INH PRN (13:00)
--- NOTE | 2019-07-27 13:05 | NUR ---
CONSULTATION PAGED/CALLED Reason for Consultation: RENAL COLIC Person Who was Notified: ROVERTO Consulting Physician: DR. JOSE LYONS Privacy Compliance Manager Specialty: UROLOGY Ordering Physician: DR. Anita RENEE
[2019-07-27] MEDS ORDERED: METOPROLOL TARTRATE 50 MG TABLET PO ONE (13:15)
[2019-07-27] MEDS ORDERED: CITALOPRAM HYDROBROMIDE 20 MG TABLET PO ONE (13:15)
[2019-07-27] MEDS: KETOROLAC TROMETHAMINE 15 MG VIAL IVP PRN ×3 (13:39→20:51)
[2019-07-27] MEDS ORDERED: AZITHROMYCIN 500 MG in NS 250 ML IV ONE (14:00)
--- NOTE | 2019-07-27 14:00 | NUR ---
other due medication as ordered.
--- NOTE | 2019-07-27 14:30 | NUR ---
started on normal saline at 100cc/hr infusing on well. on the left ac #18.
--- NOTE | 2019-07-27 14:45 | NUR ---
patient aaox 4. has complained rt flank pain. most especially when coughing. lungs bilaterally clear. abdomen soft and non distended. has iv acces on the left ac #18 saline lock. bed low position, alarmed and locked. call lights within reach. patient is ambulatory. instructed to call for assistance.
--- NOTE | 2019-07-27 15:00 | NUR ---
due medication given, and pain meds given.
[2019-07-27 16:08] VITALS: BP_SYST 117
[2019-07-27] MEDS ORDERED: MAGNESIUM CITRATE 300 ML ORAL SOLUTION PO ONE (16:45)
--- NOTE | 2019-07-27 17:00 | NUR ---
dr mackey urologist came and see the patient.
--- NOTE | 2019-07-27 18:45 | NUR ---
patient voided at the bathroom strain urine no stone noted.
--- NOTE | 2019-07-27 18:50 | NUR ---
magnesium citrate po given as ordered.
--- NOTE | 2019-07-27 19:00 | NUR ---
please strain urine.
--- NOTE | 2019-07-27 19:10 | NUR ---
OPENING NOTES RECEIVED REPORT FROM MORNING SHIFT NURSEJUNG RN. PATIENT AOX4. FAMILY AT BEDSIDE. NO SIGNS OF RESPIRATORY DISTRESS NOTED. DENIES PAIN AND DISCOMFORT AT THIS TIME. IVF INFUSING WELL, PATENCY NOTED. VITAL SIGNS TAKEN AND RECORDED. CALL LIGHT WITHIN REACH, PATIENT EDUCATED TO USE CALL LIGHT WHEN ASSISTANCE IS NEEDED, PATIENT VERBALIZED UNDERSTANDING. BED LOCKED AND IN LOWEST POSITION. SAFETY PRECAUTIONS IN PLACE. WILL CONTINUE TO MONITOR PATIENT.
--- NOTE | 2019-07-27 19:30 | NUR ---
endorsed to incoming nurse Bailey VALLADARES
[2019-07-27 20:00] VITALS: BP_SYST 109
--- NOTE | 2019-07-27 20:34 | NUR ---
PAGED I PAGED DR. TONY @ [phone] I SPOKE WITH MUNDO DUARTE
[2019-07-27] MEDS: DOCUSATE SODIUM 100 MG CAPSULE PO SCH ×2 (20:49→22:57)
[2019-07-27] MEDS ORDERED: AMOXICILLIN/CLAVULANATE POTASSIUM 875 MG TABLET PO SCH (21:00)
[2019-07-27] MEDS ORDERED: guaiFENesin 200 MG/10 ML UDC PO PRN (21:15)
--- NOTE | 2019-07-27 21:18 | NUR ---
PAGED I PAGED DR. TONY @ [phone] MARIN CALLED BACK @ 7
--- NOTE | 2019-07-27 21:19 | NUR ---
DR. TONY CALLED BACK @ [phone]
--- NOTE | 2019-07-27 22:57 | NUR ---
MED PASS DUE MEDICATION GIVEN AT THIS TIME. COUGHING IS NOTED. PRN FOR COUGH IS GIVEN, PATIENT TOLERATED WELL. PATIENT EDUCATED WITH THE PURPOSE, SIDE EFFECTS AND PURPOSE OF THE MEDICATIONS THAT ARE TAKEN, PATIENT VERBALIZED UNDERSTANDING. NO SIGNS OF RESPIRATORY DISTRESS AND DISCOMFORT NOTED. SAFETY PRECAUTIONS IN PLACE. WILL CONTINUE TO MONITOR.
[2019-07-28] VITALS: BP_SYST 109
[2019-07-28] MEDS ORDERED: HYDROmorphone 1 MG INJ. 1 MG/ML AMPUL IVP ONE (00:30)
[2019-07-28] MEDS ORDERED: DIPHENHYDRAMINE INJ 50 MG/ML VIAL IVP ONE (00:30)
--- NOTE | 2019-07-28 00:30 | NUR ---
SPOKE WITH MD MCKAY MADE AWARE OF PATIENTS PAIN LEVEL AT THIS TIME. PATIENT RECEIVE TORADOL AT 2050, PAIN MEDICATION NOT EFFECTIVE AFTER 3 HOURS, PATIENT VERBALIZED 10/10 RIGHT FLANK PAIN AT THIS TIME . DR. TONY GAVE NEW ORDER. MADE HAN OF PATIENTS ALLERGY. OK TO GIVE DILAUDID O.5 MG IVP ONCE. WITH PRN BENADRYL ON THE EMR AT THIS TIME.
--- NOTE | 2019-07-28 00:59 | NUR ---
NOTE PATIENT MADE RN AWARE OF THE PARTICLE THAT CAME OUT FROM HER COUGH. SLIMY, RECTANGULAR SHAPE WITH FEW BLOOD NOTED. ASSESSMENT DONE, NO ACTIVE BLEEDING NOTED. PATIENT VERBALIZED COUGH IS GONE AFTER COUGHING OUT THE UNKNOWN PARTICLE. TRINH CASTANEDA MADE AWARE, HE VERBALIZED TO MAKE MD AWARE IN THE MORNING WHEN SHE DOES HER ROUNDS.
--- NOTE | 2019-07-28 02:37 | NUR ---
RN ROUNDS PATIENT ASLEEP AT THIS TIME, WITH FAMILY AT BEDSIDE. NO SIGNS OF RESPIRATORY DISTRESS AND DISCOMFORT NOTED. BREATHING EVEN AND UNLABORED. CALL LIGHT WITHIN REACH. SAFETY PRECAUTIONS IN PLACE. WILL CONTINUE TO MONITOR PATIENT
--- NOTE | 2019-07-28 04:32 | NUR ---
RN ROUNDS PATIENT ASLEEP AT THIS TIME. SPOUSE AT BEDSIDE. NO SIGNS OF RESPIRATORY DISTRESS AND DISCOMFORT NOTED. BREATHING EVEN AND UNLABORED. CALL LIGHT WITHIN REACH. SAFETY PRECAUTIONS IN PLACE. WILL CONTINUE TO MONITOR
--- NOTE | 2019-07-28 06:39 | NUR ---
CLOSING NOTES PATIENT AWAKE WITH SPOUSE AT BEDSIDE. NO SIGNS OF RESPIRATORY DISTRESS AND DISTRESS AND DISCOMFORT NOTED. DENIES PAIN AT THIS TIME. CALL LIGHT WITHIN REACH. SAFETY PRECAUTIONS IN PLACE. ALL NEEDS MET THROUGHOUT THE SHIFT. WILL CONTINUE TO MONITOR UNTIL ENDORSE TO ONCOMING SHIFT NURSE FOR CONTINUITY OF CARE.
[2019-07-28 07:00] LABS: BASOPHILS % (AUTO) 0.5 % (0.0-2.0); EOSINOPHILS # (AUTO) 0.4 K/uL (0.0-0.4); EOSINOPHILS % (AUTO) 5.3 % (0.0-4.0); HEMATOCRIT 29.4 % (36-48); HEMOGLOBIN 10.1 g/dL (12.0-16.0); LYMPHOCYTES # (AUTO) 1.9 K/uL (1.0-5.5); MEAN CORPUSCULAR HEMOGLOBIN 31 pg (27-31); MEAN CORPUSCULAR HGB CONC 34 % (32-36); MEAN CORPUSCULAR VOLUME 91 fL (79.0-98.0); MONOCYTES # (AUTO) 0.7 K/uL (0.0-1.0); MONOCYTES % (AUTO) 9.4 % (1.7-9.3); NEUTROPHILS # (AUTO) 4.1 K/uL (1.8-7.7); NEUTROPHILS % (AUTO) 57.8 % (40.0-70.0); PLATELET COUNT (AUTO) 388 K/uL (130-430); RED BLOOD CELL COUNT(AUTO) 3.23 MIL/uL (4.2-6.2); RED CELL DISTRIBUTION WIDTH 13.3 % (9.0-15.0); WHITE BLOOD COUNT (AUTO) 7.1 K/uL (4.8-10.8)
[2019-07-28 07:09] LABS: CALCIUM 8.3 mg/dL (8.4-11.0); CREATININE 0.69 mg/dL (0.55-1.30); POTASSIUM 3.9 mmol/L (3.5-5.1)
[2019-07-28 08:00] VITALS: BP_SYST 111
--- NOTE | 2019-07-28 08:00 | NUR ---
RN OPENING NOTE PATIENT IS RESTING IN BED, ALERT ORIENTED X4 , PATIENT WAS ASSESSED, VITAL SIGNS ARE STABLE. PATIENT'S DENIES PAIN OR DISCOMFORT. PATIENT'S BED AT LOW POSITION AND CALL LIGHT WITHIN REACH, WILL PASS THE MEDICATIONS AT 0900
[2019-07-28] MEDS: DOCUSATE SODIUM 100 MG CAPSULE PO SCH (08:43)
[2019-07-28] MEDS ORDERED: TAMSULOSIN HCL 0.4 MG CAP PO SCH (09:00)
[2019-07-28] MEDS ORDERED: CITALOPRAM HYDROBROMIDE 20 MG TABLET PO SCH (09:00)
[2019-07-28] MEDS ORDERED: METOPROLOL TARTRATE 50 MG TABLET PO SCH (09:00)
[2019-07-28] MEDS ORDERED: TAMS-11 PO (10:05)
[2019-07-28] MEDS ORDERED: [UNRECOGNIZED DRUG - CODE] IM (10:05)
[2019-07-28] MEDS ORDERED: CEPH-568 PO (10:05)
--- NOTE | 2019-07-28 10:33 | NUR ---
RN NOTE PATIENT'S INSURANCE CALLED AND ASKED ABOUT THE STATUS OF THE PATIENT TO BE DISCHARGED HOME OR IF SHE WILL NEED A HOME HEALTH, I TALKED TO DR. RENEE AND HE APPROVED WE CAN TALK TO THE INSURANCE AND TELL THEM THAT THE PATIENT WILL BE DISCHARGED TODAY.
--- NOTE | 2019-07-28 12:00 | NUR ---
RN NOTE PATIENT WAS EDUCATED ABOUT FALL PREVENTION, AND WAS SERVED HER LUNCH, PATIENT WAS EDUCATED ABOUT RENAL COLIC WELL PNEUMONIA, PATIENT VERBALIZED UNDERSTANDING, WILL CONTINUE TO FOLLOW UP WITH THE PATIENT'S DISCHARGE.
[2019-07-28 12:40] VITALS: BP_SYST 104
[2019-07-28] MEDS ORDERED: cefTRIAXone 1 GM IVPB PREMIX 50 ML IV SCH (13:00)
[2019-07-28 13:20] VITALS: BP_SYST 104
[2019-07-28] MEDS ORDERED: AZITHROMYCIN 500 MG in NS 250 ML IV SCH (14:00)
--- NOTE | 2019-07-28 14:30 | NUR ---
MAIL HANDLERS SUPERVISOR NOTE PATIENT WAS GIVEN HER DISCHARGE INSTRUCTION. REMOVED HER SALINE LOCK, PATIENT WAS EDUCATED ABOUT HER DISEASE MANAGEMENT AND WAS INSTRUCTED FOR HER FOLLOW UP INSTRUCTION. PATIENT WAS ESCORTED TO THE PARKING LOT WITH HER AND THE NURSE WHERE SHE GOT IN HER CAR SAFELY, AND HERE BY i SIGN OFF PATIENT'S CARE DUE TO PATIENTS'S DISCHARGE.
--- NOTE | 2019-07-31 14:39 | NUR ---
SS NOTES/DISCHARGE FOLLOW UP PHONE CALL: MARKETING COMMUNICATIONS SPECIALIST phoned pt @ [phone] who stated that she is "feeling sluggish, but getting there". Pt states she was able to hot die picker her prescription and understood the instructions given. Pt also stated she is working on getting appointments with her PCP and urologist and is also getting mental health services through the [facility]. Pt has not done her labtest of Chem12 and CBC but will inform doctor about it. MARKETING COMMUNICATIONS SPECIALIST encouraged pt to call SS if concerns arise. No further followup call needed.
== END 2019-07-28 14:30 | disposition home or self-care (01) | DRG 694 ==
LOC: SED 08:20 → SMU 11:42
PROVIDERS: ADMIT Internal Medicine; ATTEND Internal Medicine
DX: N20.0 Calculus of kidney (principal); I10 Essential (primary) hypertension; F32.9 Major depressive disorder, single episode, unspecified; J45.909 Unspecified asthma, uncomplicated; F41.9 Anxiety disorder, unspecified; G43.909 Migraine, unspecified, not intractable, without status migrainosus; Z87.01 Personal history of pneumonia (recurrent); Z79.899 Other long term (current) drug therapy
CPT/HCPCS: 36415; 71045; 80048; 80053; 80307; 81000-TC; 82150-TC; 83605; 84703; 85025; 87040-TC; 87081; 96361; 96374; 96375; 99285; J0456; J0696; J1170; J1885; J2405; J7030; J7050